=== PATIENT | female | born 1980 | race Caucasian/White ===

== ENCOUNTER → 2020-02-03 | Outpatient (CLI) | payer OTHER ==
[2020-02-05 03:10] LABS: CHLAMYDIA TRACHOMATIS, NAA Negative (Negative); NEISSERIA GONORRHOEAE, NAA Negative (Negative)
[2020-02-05 15:07] LABS: HPV 16 Negative (Negative); HPV 18 Negative (Negative); HPV OTHER HR TYPES Negative (Negative)
== END ==
LOC: LAB EV 12:10 → LAB SHORT 12:10
PROVIDERS: Student in an Organized Health Care Education/Training Program
DX: Z01.419 Encounter for gynecological examination (general) (routine) without abnormal findings (principal); Z11.3 Encounter for screening for infections with a predominantly sexual mode of transmission
CPT/HCPCS: 87491; 87591

== ENCOUNTER 2020-07-29 09:04 | Day surgery (SDC) | payer OTHER ==
[~2020-07-29] VITALS: Ht 162.6 cm; Wt 139.7 kg
[2020-07-29] MEDS ORDERED: Adipex-P37.5 MG PO (09:54)
--- NOTE | 2020-07-29 11:59 | NUR ---
07/29/20 1159 MARK HEATON VERBAL ORDER FOR ULTRAM 50MG PO 1X PER DR. POMPA
== END 2020-07-29 11:55 | disposition home or self-care (01) ==
LOC: ORSCSDS 09:04
PROVIDERS: Podiatrist Foot & Ankle Surgery
PROC: 0QBK0ZX Excision of Left Fibula, Open Approach, Diagnostic (ICD-10-PCS; principal; 2020-07-29 10:15)
DX: M25.772 Osteophyte, left ankle (principal); Z87.891 Personal history of nicotine dependence; E66.01 Morbid (severe) obesity due to excess calories; Z68.43 Body mass index [BMI] 50.0-59.9, adult
CPT/HCPCS: J0171; J0690; J1885; J2250; J3010; J7120

== ENCOUNTER 2020-11-25 08:37 | Day surgery (SDC) | payer OTHER ==
[~2020-11-25] VITALS: Ht 162.6 cm; Wt 147.0 kg
[~2020-11-25 08:37] MED LIST: Adipex-P37.5 MG PO; KETO10 PO
--- NOTE | 2020-11-25 09:28 | NUR ---
11/25/20 0928 Sherley Fletcher PT CHEWING GUM UPON ARRIVAL TO PRE-OP; BOTH ANESTHESIA AND SURGEON NOTIFIED.
--- NOTE | 2020-11-25 10:06 | NUR ---
11/25/20 1006 Ava Jackson BUPIVACAINE 0.5% MIXED WITH 0.15MG EPI TO CONSTITUTE BUPIVACAINE 0.5% W/ EPI 1:200,000 PER ORDERS. INJECTED 30ML BY DR. POMPA
== END 2020-11-25 12:03 | disposition home or self-care (01) ==
LOC: ORSCSDS 08:37
PROVIDERS: Podiatrist Foot & Ankle Surgery
PROC: 0LU Tendons, Supplement (ICD-10-PCS; principal; 2020-11-25 09:45)
DX: S93.05XA Dislocation of left ankle joint, initial encounter (principal); E66.01 Morbid (severe) obesity due to excess calories; Z68.43 Body mass index [BMI] 50.0-59.9, adult
CPT/HCPCS: A9270; C1713; J0171; J0690; J1100; J1885; J2250; J2405; J2704; J3010; J7120

== ENCOUNTER → 2021-01-27 | Outpatient (CLI) | payer OTHER ==
[2021-01-29 04:06] LABS: CHLAMYDIA TRACHOMATIS, NAA Negative (Negative)
[2021-02-01 14:12] LABS: HPV 16 Negative (Negative); HPV 18 Negative (Negative); HPV OTHER HR TYPES Negative (Negative)
== END ==
LOC: LAB SHORT 10:30
PROVIDERS: Student in an Organized Health Care Education/Training Program
DX: Z01.419 Encounter for gynecological examination (general) (routine) without abnormal findings (principal); Z11.3 Encounter for screening for infections with a predominantly sexual mode of transmission; Z88.5 Allergy status to narcotic agent; Z88.6 Allergy status to analgesic agent; Z91.040 Latex allergy status
CPT/HCPCS: 87491; 87591; 87624; G0123

== ENCOUNTER 2021-10-03 07:52 | Emergency (ER) | payer OTHER ==
[~2021-10-03] VITALS: Ht 162.6 cm; Wt 136.1 kg
[2021-10-03] MEDS ORDERED: Amoxicillin500 MG PO (08:07)
== END 2021-10-03 08:38 | disposition home or self-care (01) ==
LOC: ER 07:52
DX: J02.9 Acute pharyngitis, unspecified (principal); Z91.040 Latex allergy status; Z88.5 Allergy status to narcotic agent
CPT/HCPCS: 99284; J1100

== ENCOUNTER 2022-06-13 17:00 | Emergency (ER) | payer OTHER ==
[~2022-06-13] VITALS: Ht 160 cm; Wt 136.1 kg
[~2022-06-13 17:00] MED LIST changes: +Amoxicillin500 MG PO
[2022-06-13] MEDS ORDERED: MELO7.5 PO (21:51)
== END 2022-06-13 22:36 | disposition home or self-care (01) ==
LOC: ER 17:00
DX: M25.562 Pain in left knee (principal); X50.1XXA Overexertion from prolonged static or awkward postures, initial encounter; F17.200 Nicotine dependence, unspecified, uncomplicated; Z88.5 Allergy status to narcotic agent; Z88.6 Allergy status to analgesic agent; Z91.040 Latex allergy status; Z79.899 Other long term (current) drug therapy
CPT/HCPCS: 73562-LT; 96372; 99283-25; J1885

== ENCOUNTER 2022-09-16 19:29 | Emergency (ER) | payer OTHER ==
[~2022-09-16] VITALS: Ht 162.6 cm; Wt 142.9 kg
[~2022-09-16 19:29] MED LIST changes: +MELO7.5 PO
[2022-09-16] MEDS ORDERED: PRED20 PO (23:07)
== END 2022-09-16 23:10 | disposition home or self-care (01) ==
LOC: ER 19:29
DX: J45.901 Unspecified asthma with (acute) exacerbation (principal); Z88.6 Allergy status to analgesic agent; Z88.5 Allergy status to narcotic agent; Z91.040 Latex allergy status
CPT/HCPCS: 94640; 94664; J7512

== ENCOUNTER 2025-08-11 04:35 | Emergency (ER) | payer BC, OTHER ==
[~2025-08-11] VITALS: Ht 162.6 cm; Wt 156.5 kg
[~2025-08-11 04:35] MED LIST changes: +PRED20 PO
[2025-08-11 04:44] VITALS: BP 170/141
[2025-08-11] MEDS ORDERED: LOSARTAN POTASS25 M2 PO (04:47)
== END 2025-08-11 05:02 | disposition home or self-care (01) ==
LOC: ER 04:35
DX: J06.9 Acute upper respiratory infection, unspecified (principal); F17.200 Nicotine dependence, unspecified, uncomplicated; Z79.899 Other long term (current) drug therapy
CPT/HCPCS: 99283